=== PATIENT | male | born 1945 | race Caucasian/White ===

== ENCOUNTER → 2017-01-12 | Outpatient (CLI) | payer MEDICARE ==
--- NOTE | 2017-01-13 06:12 | RADONC ---
RADIATION ONCOLOGY FOLLOWUP NOTE: DATE: 01/12/2017 CHART NUMBER: [id number]. DIAGNOSIS: Prostate cancer. STAGE: IIA, T2N0M0. ECOG PERFORMANCE STATUS: Zero. FOLLOWUP NOTE: Mr. Madrigal is a very pleasant, 72-year-old white male with the diagnosis of a stage IIA, T2N0M0 moderate to poorly differentiated, Tima score 7 (4-3) adenocarcinoma of prostate who is presenting to us today for routine followup visit 5 years and 2 months post completion of external beam radiation therapy. The patient presents today reporting that he is doing quite well with no complaints at this time related to his radiation therapy or disease. He has no urinary or bowel difficulties. No bone pain. REVIEW OF SYSTEMS: The patient's review of systems is noncontributory. Denies nausea, vomiting, fevers, chills, night sweats, diplopia, headaches, anxiety or depression, anorexia, weight loss, visual disturbances, chest pain, urinary or bowel difficulties, bone pain, or neurological problems. PHYSICAL EXAMINATION: The patient is a well-developed, well-nourished male in no acute distress. HEENT exam is normocephalic, atraumatic. Extraocular movements are intact. There is no palpable cervical, supraclavicular, infraclavicular, axillary, or inguinal lymphadenopathy present. Lungs are clear to auscultation and percussion. Heart has a regular rate and rhythm. Abdomen is benign with no hepatosplenomegaly, masses, or tenderness. Rectal examination reveals a normal anal sphincter tone. His prostate is smooth with no evidence of nodularity. Skeletal examination reveals no tenderness to pressure or percussion of the bony skeleton. Extremities reveal no clubbing, cyanosis, or edema. Neurologic exam is grossly intact, as is the remainder of the physical examination. ASSESSMENT: The patient is clinically JUAN at this time and will be seen by us again in 1 year for further followup. He will also continue to be followed by his other physicians as well. cc: MD Dameon Castano MD
== END ==
LOC: M ONCR 10:35
PROVIDERS: ATTEND Radiology Radiation Oncology
DX: C61 Malignant neoplasm of prostate (principal)

== ENCOUNTER → 2018-01-18 | Outpatient (CLI) | payer MEDICARE | LOC: M ONCR 10:12 | DX: C61 Malignant neoplasm of prostate (principal) | CPT/HCPCS: G0463 ==

== ENCOUNTER → 2018-03-07 | Outpatient (CLI) | payer MEDICARE | LOC: M PLARAD 13:13 | DX: R91.1 Solitary pulmonary nodule (principal) | CPT/HCPCS: 78815 ==